=== PATIENT | male | born 1975 | race Caucasian/White ===

== ENCOUNTER 2020-07-28 20:06 | Emergency (ER) | payer MEDICAID ==
[~2020-07-28] VITALS: Ht 170.2 cm; Wt 106.6 kg
[2020-07-28 20:15] VITALS: BP_SYST 147
[2020-07-28 20:57] LABS: BASOPHILS # (AUTO) 0.1 K/uL (0.0-0.2); BASOPHILS % (AUTO) 1.3 % (0.0-2.0); EOSINOPHILS # (AUTO) 0.5 K/uL (0.0-0.4); EOSINOPHILS % (AUTO) 5.9 % (0.0-4.0); HEMATOCRIT 42.5 % (36-54); HEMOGLOBIN 14.4 g/dL (14.0-18.0); LYMPHOCYTES # (AUTO) 2.8 K/uL (1.0-5.5); LYMPHOCYTES % (AUTO) 31.1 % (20.5-51.5); MEAN CORPUSCULAR HEMOGLOBIN 30 pg (27-31); MEAN CORPUSCULAR HGB CONC 34 % (32-36); MEAN CORPUSCULAR VOLUME 89 fL (79.0-98.0); MONOCYTES # (AUTO) 0.5 K/uL (0.0-1.0); MONOCYTES % (AUTO) 5.8 % (1.7-9.3); NEUTROPHILS # (AUTO) 5.1 K/uL (1.8-7.7); NEUTROPHILS % (AUTO) 55.9 % (40.0-70.0); PLATELET COUNT (AUTO) 245 K/uL (130-430); RED BLOOD CELL COUNT(AUTO) 4.77 MIL/uL (4.2-6.2); RED CELL DISTRIBUTION WIDTH 13.6 % (9.0-15.0)
[2020-07-28 21:21] LABS: ANION GAP 7 (5-15); CALCIUM 8.4 mg/dL (8.4-11.0); CHLORIDE 104 mmol/L (98-107); CREATININE 1.23 mg/dL (0.55-1.30); GLUCOSE 85 mg/dL (70-99); POTASSIUM 3.1 mmol/L (3.5-5.1); SODIUM SERUM 142 mmol/L (136-145); UREA NITROGEN, BLOOD 28 mg/dL (8-21)
[2020-07-28] MEDS ORDERED: TOPXL100 PO (21:28)
[2020-07-28] MEDS ORDERED: LISI20TA30 PO (21:28)
[2020-07-28 21:30] LABS: ALANINE AMINOTRANSFERASE 29 U/L (12-78); ALBUMIN 3.4 g/dL (3.4-4.8); ASPARTATE AMINOTRANSFERASE 19 U/L (10-37); TOTAL BILIRUBIN 0.2 mg/dL (0.0-1.0)
[2020-07-28 21:48] LABS: GFR AFRICAN AMERICAN 82 mL/min (>90)
[2020-07-28] MEDS ORDERED: POTASSIUM CHLORIDE 20 MEQ/PKT PACKET PO ONE (22:30)
[2020-07-28 22:50] VITALS: BP_SYST 136
== END 2020-07-28 22:59 | disposition home or self-care (01) ==
LOC: SED 20:06
DX: M94.0 Chondrocostal junction syndrome [Tietze] (principal); E87.6 Hypokalemia; I10 Essential (primary) hypertension; Z79.899 Other long term (current) drug therapy
CPT/HCPCS: 36415; 71045; 80053; 83880; 84484; 85025; 93005; 99285

== ENCOUNTER 2020-12-01 01:43 | Emergency (ER) | payer MEDICAID ==
[~2020-12-01] VITALS: Ht 170.2 cm; Wt 94.8 kg
[~2020-12-01 01:43] MED LIST: LISI20TA30 PO; TOPXL100 PO
[2020-12-01 01:59] VITALS: BP_SYST 123
[2020-12-01 02:23] VITALS: BP_SYST 123
== END 2020-12-01 02:23 | disposition home or self-care (01) ==
LOC: SED 01:43
DX: H93.12 Tinnitus, left ear (principal); I10 Essential (primary) hypertension; Z79.899 Other long term (current) drug therapy
CPT/HCPCS: 99281

== ENCOUNTER 2021-03-06 09:17 | Emergency (ER) | payer MEDICAID, SELFPAY ==
[~2021-03-06] VITALS: Ht 172.7 cm; Wt 90.7 kg
[2021-03-06 09:40] VITALS: BP_SYST 150
[2021-03-06] MEDS ORDERED: D ME PO ×2 (09:58)
[2021-03-06 10:15] VITALS: BP_SYST 150
== END 2021-03-06 10:15 | disposition home or self-care (01) ==
LOC: SED 09:17
DX: U07.1 COVID-19 (principal); J06.9 Acute upper respiratory infection, unspecified; I10 Essential (primary) hypertension; Z79.899 Other long term (current) drug therapy
CPT/HCPCS: 99283; C9803; U0003

== ENCOUNTER 2021-03-10 09:54 | Emergency (ER) | payer MEDICAID, SELFPAY ==
[~2021-03-10] VITALS: Ht 170.2 cm; Wt 90.7 kg
[~2021-03-10 09:54] MED LIST changes: +D ME PO
[2021-03-10 10:10] VITALS: BP_SYST 174
--- NOTE | 2021-03-10 10:15 | NUR ---
Patient to ER bed tent 1 to gown for evaluation. Side rails up.
--- NOTE | 2021-03-10 10:18 | NUR ---
ER at bedside examining patient.
--- NOTE | 2021-03-10 10:18 | NUR ---
Pt presents to ED w/ acute onset of SOB.Pt reports COVID (+) results on Saturday this week.Pt states " this probrably anxiety". Pt has no acute distress noted at this time. VSS.
[2021-03-10] MEDS ORDERED: ALBU8.5H8 INH (10:43)
[2021-03-10] MEDS ORDERED: PRED20TA PO (10:43)
[2021-03-10 10:45] VITALS: BP_SYST 174
--- NOTE | 2021-03-10 10:45 | NUR ---
Patient given written and verbal discharge instructions and verbalizes understanding. ER MD discussed with patient the results and treatment provided. Patient in stable condition. ID arm band removed. Rx of ALBUTEROL,PREDNISONE given. Patient educated on pain management and to follow up with PMD. Pain Scale 0. Opportunity for questions provided and answered. Medication side effect fact sheet provided.
== END 2021-03-10 10:45 | disposition home or self-care (01) ==
LOC: SED 09:54
DX: U07.1 COVID-19 (principal); J40 Bronchitis, not specified as acute or chronic; I10 Essential (primary) hypertension; Z79.899 Other long term (current) drug therapy
CPT/HCPCS: 71045; 99283